=== PATIENT | female | born 2000 | race Hispanic/Latino ===

== ENCOUNTER 2024-10-25 09:45 | Emergency (ER) | payer SELFPAY ==
[~2024-10-25] VITALS: Ht 165.1 cm; Wt 68.0 kg
[2024-10-25 10:00] VITALS: TEMP 98.3
[2024-10-25] MEDS ORDERED: NAPROXEN250 MG PO (11:17)
[2024-10-25] MEDS ORDERED: ULTRAM 50MG50 MG PO (11:17)
[2024-10-25 11:30] VITALS: PULSE 58; RESP 14; O2SAT 100
== END 2024-10-25 11:30 | disposition home or self-care (01) ==
LOC: ER 09:50
DX: S92.424A Nondisplaced fracture of distal phalanx of right great toe, initial encounter for closed fracture (principal); W20.8XXA Other cause of strike by thrown, projected or falling object, initial encounter; Y92.89 Other specified places as the place of occurrence of the external cause
CPT/HCPCS: 99283